=== PATIENT | male | born 1995 | race Caucasian/White ===

== ENCOUNTER 2019-03-03 20:56 | Emergency (ER) | payer MEDICAID, OTHER ==
[~2019-03-03] VITALS: Ht 170.2 cm; Wt 72.6 kg
[2019-03-03 21:01] VITALS: BP_SYST 112
[2019-03-03] MEDS ORDERED: LIDOCAINE 1%, 20 ML MDV 20 ML ONE (21:57)
[2019-03-03] MEDS ORDERED: BACITRACIN 1 GM OINT TP ONE (22:06)
[2019-03-03 22:16] VITALS: BP_SYST 112
== END 2019-03-03 22:16 | disposition home or self-care (01) ==
LOC: SED 20:56
DX: S61.213A Laceration without foreign body of left middle finger without damage to nail, initial encounter (principal); W26.0XXA Contact with knife, initial encounter; Y93.89 Activity, other specified; Y92.69 Other specified industrial and construction area as the place of occurrence of the external cause; Y99.8 Other external cause status
CPT/HCPCS: 12001; 99283; J2001

== ENCOUNTER 2019-03-05 10:34 | Emergency (ER) | payer MEDICAID, OTHER ==
[~2019-03-05] VITALS: Ht 172.7 cm; Wt 72.6 kg
[2019-03-05 10:46] VITALS: BP_SYST 141
[2019-03-05 11:25] VITALS: BP_SYST 141
[2019-03-05] MEDS ORDERED: BACITRACIN 1 GM OINT TP ONE ×2 (11:26→11:30)
== END 2019-03-05 11:25 | disposition home or self-care (01) ==
LOC: SED 10:34
DX: S61.213D Laceration without foreign body of left middle finger without damage to nail, subsequent encounter (principal); R03.0 Elevated blood-pressure reading, without diagnosis of hypertension; W26.0XXD Contact with knife, subsequent encounter
CPT/HCPCS: 99282; 99283